=== PATIENT | male | born 1955 | race Caucasian/White ===

== ENCOUNTER 2024-05-03 09:02 | Emergency (ER) | payer MEDICARE, BC, SELFPAY ==
[2024-05-03 09:16] VITALS: BP 133/101; PULSE 78; RESP 18; TEMP 36.3; O2SAT 94; BMI 31.7
--- NOTE | 2024-05-03 10:21 | ED_ITS ---
HPI - Extremity Injury (Lower) General Date Seen: 05/03/24 Chief Complaint: Extremity Pain/Injury, Lower Stated Complaint: achilles/heel pain - felt something pop Time Seen by Provider: 05/03/24 10:02 Source: patient Mode of arrival: ambulatory Limitations: no limitations History of Present Illness HPI Narrative: Patient is a 68-year-old male presenting to emergency department for left heel pain. He states he has been having pain in his left heel and calf past few weeks but then noticed yesterday when he stepped on some loose dog food he felt like he had a pop in his ankle. Since then it has been more difficult to walk on it has been able to ambulate. Does have full range of motion of his ankle at this time. Pain is in the posterior aspect were the Achilles tendon would attach. He thinks he might have tendinitis. Has not noticed any leg swelling and no history of blood clots. Has been taking Aleve at home with minimal improvement in symptoms. No other concerns noted at this time. Related Data Home Medications ?Medication ?Instructions ?Recorded ?Confirmed amlodipine 10 mg tablet 10 mg PO DAILY 04/08/23 05/03/24 atorvastatin 40 mg tablet 40 mg PO DAILY 04/08/23 05/03/24 carbidopa 25 mg-levodopa 100 mg 3 tab PO TID 04/08/23 05/03/24 tablet citalopram 40 mg tablet 40 mg PO DAILY 04/08/23 05/03/24 glipizide 5 mg tablet 5 mg PO BID 04/08/23 08/12/23 hydrochlorothiazide 25 mg tablet 25 mg PO DAILY 04/08/23 08/12/23 lisinopril 40 mg tablet 40 mg PO DAILY 04/08/23 05/03/24 metformin 500 mg tablet,extended 1,000 mg PO BID 04/08/23 05/03/24 release 24 hr metoprolol succinate 200 mg 200 mg PO DAILY 04/08/23 05/03/24 tablet,extended release 24 hr glipizide 10 mg tablet, extended 10 mg PO DAILY 05/03/24 05/03/24 release 24 hr omeprazole 20 mg capsule,delayed 20 mg PO DAILY 05/03/24 05/03/24 release semaglutide 0.25 mg or 0.5 mg (2 0.25 mg subcut 05/03/24 mg/3 mL) subcutaneous pen injector (Ozempic) Previous Rx's ?Medication ?Instructions ?Recorded cyclobenzaprine 10 mg tablet 10 mg PO TID PRN muscle spasm #15 05/03/24 tabs ketorolac 10 mg tablet 10 mg PO Q6H PRN pain #20 tabs 05/03/24 Allergies Allergy/AdvReac Type Severity Reaction Status Date / Time clozapam Allergy Mild itchy Uncoded 05/03/24 09:20 Review of Systems Narrative: Pertinent systems reviewed and were negative unless stated in HPI Exam Narrative: Exam Narrative: Const: Well-nourished, Well-developed, in mild distress Eyes: PERRL, no conjunctival injection, and symmetrical lids HENT: Atraumatic external nose and ears. Moist mucous membranes. Remove MSK:Extremities w/o deformity, Normal Active ROM, tenderness noted and left calf and heel with dorsiflexion. Mild tenderness to palpation posterior left heel Skin: Warm, Dry. No rashes or lesions. Neuro: Normal Muscle tone, No focal neurological deficits. Psych: Awake, Alert, & Oriented x3. Appropriate mood and affect. Const: Vital Signs, click to edit/add: Vital Signs - 24 hr 05/03/24 09:16 Temperature 97.3 F L Pulse Rate [Pulse Oximeter] 78 Respiratory Rate 18 Blood Pressure [Le ft Upper Arm] 133/101 H Pulse Oximetry 94 Oxygen Delivery Me thod Room Air Course Vital Signs Vital signs: Initial Vital Signs Temperature 97.3 F L 05/03/24 09:16 Temperature Source Temporal Artery Scan 05/03/24 09:16 Pulse Rate 78 05/03/24 09:16 Respiratory Rate 18 05/03/24 09:16 Blood Pressure 133/101 H 05/03/24 09:16 Blood Pressure Mean 111 H 05/03/24 09:16 Blood Pressure Position Sitting 05/03/24 09:16 Pulse Oximetry 94 05/03/24 09:16 Oxygen Delivery Method Room Air 05/03/24 09:16 Vital Signs Temperature 97.3 F L 05/03/24 09:16 Pulse Rate 78 05/03/24 09:16 Respiratory Rate 18 05/03/24 09:16 Blood Pressure 133/101 H 05/03/24 09:16 Pulse Oximetry 94 05/03/24 09:16 Oxygen Delivery Method Room Air 08/12/24 09:16 Temperature 97.3 F L 05/03/24 09:16 Pulse Rate 78 05/03/24 09:16 Respiratory Rate 18 05/03/24 09:16 Blood Pressure 133/101 H 05/03/24 09:16 Pulse Oximetry 94 05/03/24 09:16 Oxygen Delivery Method Room Air 05/03/24 09:16 MDM - Extremity Injury (Lower) MDM Narrative Medical decision making narrative: Patient is a 68-year-old male presenting for left heel pain. It does sound like he has some type of tendinitis in his left Achilles. He has full range of motion and a full Achilles tear seems unlikely. Considering how well he is able move it there is any tear it is likely very small. He is still able to ambulate. Unlikely to be DVT at this time his is no lower extremity edema and pain and history is more consistent with a tendinitis. He was asking about cortisone injections I informed him we do not do those all of the emergency department and have to follow up outpatient for this. He is agreeable. Will also give him Toradol and a muscle relaxer to see if that helps. Patient will be discharged he is agreeable to this plan. Discharge Plan Discharge Clinical Impression: Achilles tendinitis Qualifiers: Laterality: left Qualified Code(s): M76.62 - Achilles tendinitis, left leg Patient Disposition: Home, Self-Care Condition: Stable Instructions: Achilles Tendinitis (ED) Additional Instructions: Take the Toradol and Flexeril as needed for pain. When you taking Toradol do not take any other NSAIDs such as Aleve and ibuprofen. Also trying do stretching exercises see if they help. The symptoms persist your follow-up with your primary care provider or Orthopedics. You can call [phone] to schedule an appointment. Prescriptions: New cyclobenzaprine 10 mg tablet 10 mg PO TID PRN (Reason: muscle spasm) Qty: 15 0RF ketorolac 10 mg tablet 10 mg PO Q6H PRN (Reason: pain) Qty: 20 0RF Rx Instructions: maximum total duration of 5 days from all oral, intranasal, or parenteral formulations No Action lisinopril 40 mg tablet 40 mg PO DAILY amlodipine 10 mg tablet 10 mg PO DAILY atorvastatin 40 mg tablet 40 mg PO DAILY metoprolol succinate 200 mg tablet extended release 24 hr 200 mg PO DAILY glipizide 5 mg tablet 5 mg PO BID hydrochlorothiazide 25 mg tablet 25 mg PO DAILY citalopram 40 mg tablet 40 mg PO DAILY metformin 500 mg tablet extended release 24 hr 1,000 mg PO BID carbidopa-levodopa 25-100 mg tablet 3 tab PO TID glipizide 10 mg tablet extended release 24hr 10 mg PO DAILY omeprazole 20 mg capsule,delayed release(DR/EC) 20 mg PO DAILY Ozempic 0.25 mg or 0.5 mg (2 mg/3 mL) pen injector 0.25 mg subcut Follow Up/Referrals: Provider,Not a Local [Primary Care Provider] - Stand [facility]one [facility]
== END 2024-05-03 10:42 | disposition home or self-care (01) ==
PROVIDERS: Emergency Provider Student in an Organized Health Care Education/Training Program
DX: M76.62 Achilles tendinitis, left leg (principal)
CPT/HCPCS: 99282; 99283

== ENCOUNTER 2025-01-03 19:42 | Emergency (ER) | payer MEDICARE, BC, SELFPAY ==
--- OUTSIDE RECORDS SUMMARY | 2025-01-03 19:45 | XMS_ITS | Clinical Summary ---
Author Organization [facility] Address [address] [place] [address] Care Team Providers Care Logger Name Role Phone Markus Khan MD Primary Care Provider [phone] Allergies No known active allergies Medications DIOVAN HCT 160 MG-25 MG TAB daily 0 Active TOPROL XL 100 MG 24 HR TAB 1/2 tab daily 0 Active CITALOPRAM 40 MG TAB daily 0 Active WELLBUTRIN XL 300 MG 24 HR TAB daily 0 Active CIPROFLOXACIN 500 MG TAB Take 1 tablet by mouth twice a day. 6 0 06/24/2006 Active HYDROCODONE-DIANE TAMINOPHEN 5 MG-500 MG TAB Take 1 to 2 tablets by mouth every 4 hours as needed for pain. 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 Gender Identity Not on file Sexual Orientation Not on file Obstetrics History Last Filed Vital Signs Vital Sign Reading Time Taken Comments Blood Pressure 134/76 06/24/2006 10:00 AM CDT Pulse 65 06/24/2006 10:00 AM CDT Temperature 36.1 C (97 F) 06/24/2006 9:00 AM CDT Respiratory Rate 16 06/24/2006 10:0 0 AM CDT Oxygen Saturation 98% 06/24/2006 10: 00 AM CDT Inhaled Oxygen Concentration - - Weight 106.6 kg (235 lb 0.2 oz) 06/24/2006 6:57 AM CDT Height 174 cm (5' 8.5) 06/24/2006 6:57 AM CDT Body Mass Index 35.21 06/24/2006 6:57 AM CDT Plan of Treatment Health Maintenance Due Date Last Done Comments Tdap 1966 Depression screening for age 12+ 1967 BMI (ht and wt on same day) for age 18+ 1973 Hepatitis C screening for age 18-79 1973 Tetanus booster 1975 Colonoscopy through age 75 2000 Lipids for age 45-75 2000 Pneumococcal series for age 50+ (1 of 1 - PCV) 005 Zoster (shingles) series for age 50+ (1 of 2) 07/27/20 05 COVID-19 vaccine series ( - 2023- season) Influenza Vaccine (Season Ended) 2025 RSV vaccine for adults or pr egnancy (1 - 1-dose 75+ series) 2030 Medical Devices Implanted Type Area Business Area Manager Device Identifier Shelf Expiration Date Model / Serial / Lot Stent Contour [id number] Prcflx [id number] Microvas - [id number] Implanted:Qty: 1 on 06/24/2006 at [facility] Left: [facility] [id number] / / [id number] [place] [address] [place] [address] Care Teams Logger Relationship Specialty Start Date End Date Markus Khan MD PCP - General 06/03/06
--- OUTSIDE RECORDS SUMMARY | 2025-01-03 19:45 | XMS_ITS | Encounter Summary ---
Author Organization [facility] Address [address] [place] [address] Care Team Providers Care Molasses Preparer Name Role Phone Anh, Sam Murrieta MD Primary Care Provider [phone] Encounter Details Date Type Department Care Team (Late st Contact Info) Description 12/01/2024 E-Visit Endoscopy at [facility] Special[facility] [place] at [address] [address] Mychart, [place] [address] Social History Tobacco Use Types Packs/Day Years Used Date Smoking Tobacco: Never Passive Smoke Exposure: Never Smokeless Tobacco: Never Alcohol Use Standard Drinks/Week Comments Yes 0 (1 standard drink = 0.6 oz pure alcohol) Once every 3 months will have 3-4 beers PHQ-2 Answer Date Recorded PHQ-2 Score 2 10/13/2024 Sex and Gender Information Value Date Recorded Sex Assigned at Not on file Legal Sex Male 5:25 AM CDT Gender Identity Not on file Sexual Orientation Not on file documented as of this encounter Plan of Treatment Upcoming Encounters Date Type Department Care Team (Late st Contact Info) Description 01/11/2025 10:00 AM CDT Appointment [facility] [address] [place] [phone] 01/12/2025 9:30 AM CDT Appointment [place] [address] [facility] [address] [place] [phone] Jomar Coon PA-C [address] [place] [address] 02/08/2025 11:10 AM CDT Appointment [facility] [address] [place] [address] Nik Deleon MD [address] [place] [address] 02/10/2025 2:30 PM CDT Appointment Gastroenterology Procedures at [facility] [address] [address] [place] [address] Jomar Coon PA-C [address] [place] [address] Chris Ontiveros MD [address] [place] [address] documented as of this encounter Visit Diagnoses Not on filedocumented in this encounter Care Teams Molasses Preparer Relationship Specialty [place] [address] [place] [address] PCP - General Family Practice 12/06/21 documented as of this encounter
--- OUTSIDE RECORDS SUMMARY | 2025-01-03 19:45 | XMS_ITS | Clinical Summary ---
Author Organization [employer] Address [address] [place] [address] Care Team Providers Care Bilingual Hr Generalist Name Role Phone AnhSam anderson MD Primary Care Provider [phone] Source Comments You are receiving this document as you are listed as the primary care provider,follow-up provider, or the patient has been referred to you for consultation.This is in compliance with the Medicare and[facility] E[facility]centive [facility],which states Providers who transition their patient to another setting of careor provider of care or refers their patient to another provider of care shouldprovide summary care record for each transition of care or referral. [employer] Allergies Active Allergy Reactions Criticality Noted Date Comments Clonazepam Rash 01/19/2013 Not sure if the rash was clonazepam or cymbalta Duloxetine Rash 12/04/2012 Not sure if the rash was clonazepam or cymbalta Medications * This document contains information received from the source organization and may not represent a complete record from that organization. aspirin EC 81 MG enteric coated tablet Take 1 Tablet by mouth daily. 3 04/12/20 20 Active metoprolol succinate (TOPROL-XL) 200 MG 24 hour release tabletIndications: Essential hypertension (HRC) Take 1 Tablet (200 mg) by mouth daily. 90 Tablet 3 10/13/19 25 Active amLODIPine (NORVASC) 10 MG tabletIndications: Essential hypertension (HRC) Take 1 Tablet (10 mg) by mouth daily. For blood pressure 90 Tablet 3 10/13/19 25 Active atorvastatin (LIPITOR) 40 MG tabletIndications: Hyperlipidemia, unspecified hyperlipidemia type (HRC) Take 1 Tablet (40 mg) by mouth daily. To prevent heart attack and stroke 90 Tablet 10/13/19 Active carbidopa-levodopa (SINEMET) 25-100 MG tabletIndications: Tremor TAKE 3 TABLETS BY MOUTH 3 TIMES DAILY 810 Tablet 10/13/19 Active citalopram (CELEXA) 40 MG tabletIndications: Anxiety and depression (HRC) Take 1 Tablet (40 mg) by mouth daily. Patient states he is taking 40 mg daily. 90 Tablet 10/13/19 Active glipiZIDE XL 10 MG 24 hour release tabletIndications: Type 2 diabetes mellitus treated without insulin (HRC) Take 1 Tablet (10 mg) by mouth daily. 90 Tablet 10/13/19 Active hydroCHLOROthiazid e (ORETIC) 25 MG tabletIndications: Essential hypertension (HRC) Take 1 Tablet (25 mg) by mouth daily. For blood pressure 90 Tablet 10/13/19 Active lisinopril (ZESTRIL) 40 MG tabletIndications: Essential hypertension (HRC) Take 1 Tablet (40 mg) by mouth daily. 90 Tablet 10/13/19 Active metFORMIN XR (GLUCOPHAGE XR) 500 MG 24 hour release tabletIndications: Type 2 diabetes mellitus treated without insulin (HR) Take 4 Tablets (2,000 mg) by mouth daily with food. For diabetes 360 Tablet 10/13/19 Active omeprazole (PRILOSEC) 20 MG capsuleIndications :History of NSAID-associated gastropathy Take 1 Capsule (20 mg) by mouth daily. For stomach ulcer prevention 90 Capsule 10/13/19 Active semaglutide (OZEMPIC) 2 MG/3ML injectionIndicatio ns:Type 2 diabetes mellitus treated without insulin (HRC) Inject 0.5 mg subcutaneously once a week. 3 mL 10/13/19 Active venlafaxine (EFFEXORXR) 37.5 MG 24 hour release capsuleIndications :Anxiety and depression (HRC) Take 1 Capsule (37.5 mg) by mouth daily. 30 Capsule 3 01/22/20 25 01/22/2 026 Active tiZANidine (ZANAFLEX) 4 MG tabletIndications: Strain of lumbar region, initial encounter Take 1 Tablet (4 mg) by mouth every 6 hours as needed. 30 Tablet 1 10/13/19 25 Active methylPREDNISolone (MEDROL 21 TABLET DOSEPACK) 4 MG tabletIndications: Strain of lumbar region, initial encounter Follow package directions 21 Tablet 10/13/19 25 Active Active Problems Problem Noted Date Diagnosed Date Parkinsonism 05/15/2021 Class 1 obesity due to exces s calories with serious comorbidity and body mass index (BMI) of 33.0 to 33.9 in adult 08/07/2017 Major depressive disorder 12/16/2016 Hypertension associated with diabetes 02/03/2015 Overview (12/17/2016): Uncontrolled as of 12/16/2016 - adding Hctz 25mg daily to previous regimen of amlodipine 10mg, hydralazine 25mg BID, lisinopril 40mg daily, metoprolol 100mg BID - plan to gradually taper off hydralazine. 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 [address] Mychart, Generic Provider 10/18/2024 Telephone [facility] [phone] Family [facility] [address] [place] [address] Sam Kamara MD ERRONEOUS ENTRY 10/13/2024 1:00 PM [employer] Office Visit [address] [address] Jomar Coon PA-C Type 2 diabetes mellitus treated without insulin (HRC) (Primary Dx); Essential hypertension (HRC); Hyperlipidemia, unspecified hyperlipidemia type (HRC); Anxiety and depression (HRC); Tremor; History of NSAID-associated gastropathy; Strain of lumbar region, initial encounter 10/12/2024 12:30 PM [employer] Lab Visit [address] [address] Type 2 diabetes mellitus treated without insulin (HRC) 10/08/[address] [address] Sam Kamara MD Refill; New Medication from Last 3 Months Immunizations Immunization Administration Dates Next Due Flu Vac (3+ yrs) 09/01/2003 Flu Vac Preserv Free (3+yrs) 06/21/2016 Influenza IIV4 (Quadrivalent) 0.5mL (53913) 07/23 Influenza IIV4 (Quadrivalent ) Fluad, 65+ Yrs 07/03/2021,10/03/2020 Influenza, Unspecified Formulation 09/03/2013, PPSV23 (Pneumovax) 07/03/2021,10/02/2011 Pfizer Monovalent 12+ Purple Top 08/24/2021,03/0 10/2020,10/31/2020 TDAP (ADACEL) 06/21/2016 Td 06/19/2006 Td (7+ yrs) 06/19/2006,08/13/2005 Zoster (Zostavax) 12/16/2016 Zoster RZV (Shingrix) 12/30/2017 Family History Medical History Relation Name Comments Hypertension Father Cancer, Breast Mother Hypertension Paternal Grandfather Cataract Paternal Grandmother Diabetes Paternal Grandmother Diabetes, Type II Paternal Grandmother Heart Attack Paternal Grandmother Hypertension Paternal Grandmother Stroke Paternal Grandmother Amblyopia/Strabismus Negative Family History Cancer, Colon Negative Family History Glaucoma Negative Family History Macular Degeneration Negative Family History Retinal Detachment Negative Family History Tremor Negative Family History Relation Name Status Comments Father Mother Paternal Grandfather Paternal Grandmother Social History Tobacco Use Types Packs/Day Years Used Date Smoking Tobacco: Never Passive Smoke Exposure: Never Smokeless Tobacco: Never Tobacco Cessation:Counseling Given: Not Answered Alcohol Use Standard Drinks/Week Comments Yes 0 (1 standard drink = 0.6 oz pure alcohol) Once every 3 months will have 3-4 beers PHQ-2 Answer Date Recorded PHQ-2 Score 2 10/13/2024 Sex and Gender Information Value Date Recorded Sex Assigned at Not on file Legal Sex Male 5:25 AM CDT Gender Identity Not on file Sexual Orientation Not on file Last Filed Vital Signs Vital Sign Reading Time Taken Comments Blood Pressure 137/85 10/13/2024 12:55 PM [employer] Pulse 83 10/13/2024 12:55 PM [employer] Temperature 36.5 C (97.7 F) 05/12/2024 10:38 AM CDT Respiratory Rate 16 10/13/2024 12:52 PM [employer] Oxygen Saturation 96% 05/08/2020 2:42 PM CDT Inhaled Oxygen Concentration - - Weight 95.3 kg (210 lb) 10/13/2024 12:52 PM [employer] Height 175.3 cm (5' 9) 10/13/2024 12:52 PM [employer] Body Mass Index 31.01 10/13/2024 12:52 PM [employer] Plan of Treatment Upcoming Encounters Date Type Department Care Team (Late st Contact Info) Description 01/11/2025 10:00 AM CDT Appointment [facility] [address] [place] [phone] 01/12/2025 9:30 AM CDT Appointment [place] [phone] [address] [place] [address] Jomar Coon PA-C [address] [place] [address] 02/08/2025 11:10 AM CDT Appointment [facility] [address] [place], [place] [address] Nik Deleon MD [address] [place] [address] 02/10/2025 2:30 PM CDT Appointment Gastroenterology Procedures at [facility] [address] [address] [place] [address] Jomar Coon, PACorneliusC [address], [place] [phone] Chris Ontiveros MD [address] [place], [place] [phone] Health Maintenance Due Date Last Done Comments Zoster/Shingles (3 of 3) 02/24/2018 12/30/2017, 11/21 Pneumococcal 50+ Yrs (2 of 2 - PCV) 07/03/2022 07/03/2021, 10/02/2011 Colonoscopy 01/20/2023 01/20/2013 (Completed) COVID-19 Vaccine ( season) 2024 08/24/2021, 11/21/2020, 10/31/2020 Influenza (#1) 2024 07/03/2021, 09/22, 08/07/2017, Additional history exists FIT Colon Cancer Screening 11/30/2024 12/01/2023 Diabetes: HGBA1C 01/10/2025 10/12/2024, 12/2023, 02/05/2024, Additional history exists Diabetes: Creatinine 02/04/2025 02/05/2024, 03/05/2023, 02/19/2022, Additional history exists Diabetes: Foot Exam 02/04/2025 02/05/2024 ( Completed), 04/07/2019 (Completed), 08/07/2017 Diabetes: Eye Exam 03/03/2025 03/03/2024, 0 03/03/2024, 02/28/2023, Additional history exists Diabetes: Urine Microalbumin 05/26/2025 05/26/2024, 03/05/2023, 02/19/2022, Additional history exists Medicare Annual Wellness Visit 05/26/2025 05/26/2024, 03/05/2023, 02/19/2022 DTaP/Tdap/Td (2 - Tdap) 06/21/2026 06/21/20 16, 06/19/2006, 06/19/2006, Additional history exists Diabetes: Lipid Panel 02/04/2029 02/05/2024 , 03/05/2023, 02/19/2022, Additional history exists RSV (1 - 1-dose 75+ series) 2030 Hep C Screening (Preventive Services) Completed 12/16/2016 PSA Screening Discussion Discontinued 024, 03/05/2023, 02/19/2022, Additional history exists HepA Aged Out No longer eligi ble based on patient's age to complete this topic HepB Aged Out No longer eligi ble based on patient's age to complete this topic Hib Aged Out No longer eligi ble based on patient's age to complete this topic IPV (Polio) Aged Out No longer eligi ble based on patient's age to complete this topic MCV4 Aged Out No longer eligi ble based on patient's age to complete this topic Meningococcal B Aged Out No longer el igible based on patient's age to complete this topic Procedures Procedure Name Priority Date/Time Associated Diagnosis Comments HGB A1C Routine 10/12/2024 12:28 PM [employer] Type 2 diabetes mellitus treated without insulin (HRC) ALBUMIN/CREAT RATIO Routine 05/26/2024 12:08 PM CDT Type 2 diabetes mellitus treated without insulin (HRC) PROSTATIC SPECIFIC ANTIGEN(SCREEN) Routine 05/26/2024 12:02 PM CDT Screening for prostate cancer BASIC METABOLIC PANEL Routine 02/05/2024 2:55 PM CDT Essential hypertension (HRC) LIPID PANEL & DIRECT LDL (IF NEEDED) Routine 02/05/2024 2:55 PM CDT Hyperlipidemia, unspecified hyperlipidemia type (HRC) FIT,OCCULT BLOOD, STOOL Routine 12/01/2023 8:00 AM CDT Screen for colon cancer HEPATITIS C ANTIBODY, WITH REFLEX Routine 12/16/2016 3:24 PM CDT Need for hepatitis C screening test from Last 3 Months or Most Recently Relevant to Health Maintenance Results * (ABNORMAL) Hgb A1C (10/12/2024 12:28 PM [employer]) Hemoglobin A1C 7.6(H) <=5.6 % 10/12/2024 8:22 PM [employer] [facility] Estimated Average Glucose (Calc) 171 < 117 mg/dL 10/12/2024 8:22 PM [employer]ACH [facility] Comment:Estimated average gl ucose (eAG) converts A1c into glucose units (mg/dL) and estimates average glucose over the past approximately 3 months. The eAG reference interval (<117 mg/dL) corresponds to an A1c of <5.7%. Blood Venipuncture / Unknown 10/12/2024 12:28 PM [employer] 10/12/2024 12:28 PM [employer] Narrative [facility] - 10/12/2024 8:22 PM [employer] For patients not previously diagnosed with diabetes: 5.7-6.4%: Increased risk for diabetes 6.5% and greater: Diagnostic for diabetes For patients diagnosed with diabetes: <8.0%: Goal of therapy for ages 18-75 Clinicians may recommend a higher or lower goal for specific individuals. us Sam Kamara MD LAB_1 Final Result [facility] [address] [address] * (ABNORMAL) Albumin/Creatinine Ratio,Random Urine (05/26/2024 12:08 PM CDT) Albumin/Creati nine Ratio, Urine, Random 78(H) <30 mg/g 05/26/2024 6:50 PM CDT [facility] Albumin, Urine, Random 62.3 mg/L 05/26/2024 6:50 PM CDT [facility] Creatinine, Urine, Random 80 >20 mg/dL mg/dL 05/26/2024 6:50 PM CDT [facility] Urine Non-blood Collection / Unknown 05/26/2024 12:08 PM CDT 05/26/2024 12:08 PM CDT Jomar Coon PA-C LAB_1 Final Result Performing Organization Address [facility]/ZIP Co de Phone Number [facility] [address] [place] [address] * PSA - Prostatic Specific Antigen (Screen) (05/26/2024 12:02 PM CDT) Prostatic Specific Antigen 2.7 0.0 - 4.0 ng/mL 05/26/2024 6:10 PM CDT [facility] Blood Venipuncture / Unknown 05/26/2024 12:02 PM CDT 05/26/2024 12:02 PM CDT Narrative [facility] - 05/26/2024 6:10 PM CDT The [employer] PSA Chemiluminescent immunoassay is used. Results obtained with different test methods or kits cannot be used interchangeably. Jomar Coon PA-C LAB_1 Final Result Performing Organization Address [facility] Co de Phone Number [facility] [address] [place], [place] [address] * (ABNORMAL) Lipid Panel & Direct LDL (if Needed) (02/05/2024 2:55 PM CDT) Cholesterol 132 0 - 199 mg/dL 02/05/2024 7:11 PM T [facility] Triglyceride 170(H) <=149 mg/dL 02/05/2024 7:11 PM T [facility] HDL Cholesterol 37(L) >=40 mg/dL 7:11 PM T [facility] LDL, Calculated 61 <130 mg/dL 7:11 PM T [facility] Non HDL Chol, Calculated 95 <=159 mg/dL 02/05/2024 7:11 PM [facility] Cholesterol/HDL Ratio 3.6 <=5.0 02/05/2024 7:11 PM [facility] Hours Fasting 0.0 8 - 12 Hours 02/05/2024 7:11 PM [facility] Blood Venipuncture / Unknown 02/05/2024 2:55 PM CDT 02/05/2024 2:55 PM CDT us Jomar Coon PA-C LAB_1 Final Result [facility] [address] [place] [address] * (ABNORMAL) Basic Metabolic Panel (02/05/2024 2:55 PM CDT) Sodium 136 136 - 145 mmol/L 02/05/2024 7:11 PM [facility] Potassium 3.9 3.5 - 5.1 mmol/L 02/05/2024 7:11 PM [facility] Chloride 99 98 - 109 mmol/L 02/05/2024 7:11 PM [facility] CO2 23 20 - 29 mmol/L 02/05/2024 7:11 PM [facility] Anion Gap 14 6 - 16 mmol/L 02/05/2024 7:11 PM [facility] Calcium 9.8 8.4 - 10.4 mg/dL 02/05/2024 7:11 PM [facility] BUN 19 7 - 26 mg/dL 02/05/2024 7:11 PM [facility] Creatinine 0.99 0.73 - 1.18 mg/dL 02/05/2024 7:11 PM [facility] Glucose 127(H) 70 - 100 mg/dL 02/05/2024 7:11 PM [facility] Comment:The given reference range is for the fasting state. Non-fasting reference range for glucose is 70 - 180 mg/dL. GFR, Estimated >60 >60 mL/min/1.7 3m2 02/05/2024 7:11 PM [facility] Hours Fasting 0.0 8 - 12 Hours 02/05/2024 7:11 PM [facility] Blood Venipuncture / Unknown 02/05/2024 2:55 PM CDT 02/05/2024 2:55 PM CDT Jomar Coon PA-C LAB_1 Final Result Performing Organization Address City/[facility]/ZIP Co de Phone Number [facility] [address] [place] [address] * FIT Colon Rectal Cancer Screening (12/01/2023 8:00 AM CDT) FIT Specimen 1 Negative Negative 12/02/2023 2:39 AM CDT [facility] Stool Non-blood Collection / Unknown 12/01/2023 8:00 AM CDT 12/01/2023 5:17 PM CDT Jomar Coon PA-C LAB_1 Final Result Performing Organization Address [facility] de Phone Number [address] [place] [address] [address], [facility] * Hepatitis C Antibody, with Reflex (12/16/2016 3:24 PM CDT) Pathologist [facility] Anti-HCV Negative (Non Reactive) [facility] Comment: Antibodies to HCV not detected. Does not exclude the possibility of exposure to HCV. 12/16/2016 3:24 PM CDT 12/16/2016 3:25 PM CDT Narrative [facility] - 12/16/2016 6:59 PM CDT Performed at [facility], [address] [place] [address] Rigoberto Gallagher MD LAB_1 Final Result Performing Organization Address City/[facility] Co de Phone Number [facility] [phone] from Last 3 Months or Most Recently Relevant to Health Maintenance Insurance MEDICARE [facility] MEDICARE SUPPLEMENT MEDICARE [facility] MEDICARE SUPPLEMENT Care Teams Bilingual Hr Generalist Relationship Specialty [place] [address] [place] [address] PCP - General Family Practice 12/06/21
[2025-01-03 19:50] VITALS: BP 154/92; PULSE 93; RESP 16; TEMP 36.7; O2SAT 100; BMI 31.0
--- NOTE | 2025-01-03 21:18 | ED.GENADULT ---
HPI - General Adult General Chief complaint: Constipation Stated complaint: Blockage in Rectum Time Seen by Provider: 01/03/25 21:15 History of Present Illness HPI narrative: this AM started having trouble passing BM, states he feels it is about to come but just doesnt. tried dulcolax, prune juice and enema. 69-year-old man presenting to the emergency department with concern of lower abdominal pain. Having trouble passing stool. Has had trouble with constipation over the since starting Ozempic about 6 or 7 months ago. It has been 3 maybe 4 days since he had a bowel movement. Did try an enema today and just really had trouble even getting it in there. It hurts. Feels like it is about to come out having painful cramps. No blood no fever. Does look to have Parkinson's Related Data Home Medications ?Medication ?Instructions ?Recorded ?Confirmed amlodipine 10 mg tablet 10 mg PO DAILY 04/08/23 10/12/24 atorvastatin 40 mg tablet 40 mg PO DAILY 04/08/23 10/12/24 carbidopa 25 mg-levodopa 100 mg 3 tab PO TID 04/08/23 10/12/24 tablet citalopram 40 mg tablet 40 mg PO DAILY 04/08/23 10/12/24 glipizide 5 mg tablet 5 mg PO BID 04/08/23 10/12/24 hydrochlorothiazide 25 mg tablet 25 mg PO DAILY 04/08/23 10/12/24 lisinopril 40 mg tablet 40 mg PO DAILY 04/08/23 10/12/24 metformin 500 mg tablet,extended 1,000 mg PO BID 04/08/23 10/12/24 release 24 hr metoprolol succinate 200 mg 200 mg PO DAILY 04/08/23 10/12/24 tablet,extended release 24 hr glipizide 10 mg tablet, extended 10 mg PO DAILY 05/03/24 10/12/24 release 24 hr omeprazole 20 mg capsule,delayed 20 mg PO DAILY 05/03/24 10/12/24 release semaglutide 0.25 mg or 0.5 mg (2 0.25 mg subcut 05/03/24 10/12/24 mg/3 mL) subcutaneous pen injector (Ozempic) Previous Rx's ?Medication ?Instructions ?Recorded cyclobenzaprine 10 mg tablet 10 mg PO TID PRN muscle spasm #15 05/03/24 tabs ketorolac 10 mg tablet 10 mg PO Q6H PRN pain #20 tabs 05/03/24 Allergies Allergy/AdvReac Type Severity Reaction Status Date / Time clozapam Allergy Mild itchy Uncoded 10/12/24 09:32 Review of Systems Status of ROS: Reports: 6 or more systems reviewed and unremarkable except as noted in History and below PFSH PFS Social History Smoking Status: Never smoker Do you use any of these nicotine containing products: None How often do you have a drink containing alcohol: never How often do you have six or more drinks on one occasion: Never AUDIT-C Alcohol total score: 0 Non-prescribed substance use: denies use Exam Narrative: Exam Narrative: Pleasant. Hearing aids in place. Slightly flatter facies. Breathing easily. Tremor most evident in his left hand. Abdomen is full soft and nontender. Const: Vital Signs, click to edit/add: Vital Signs - 24 hr 01/03/25 19:50 Temperature 98.1 F Pulse Rate [Pulse Oximeter] 93 Respiratory Rate 16 Blood Pressure [Ri t Upper Arm] 154/92 H Pulse Oximetry 100 Oxygen Delivery Me thod Room Air Documenting provider has reviewed patient's vital signs: yes Course Vital Signs Vital signs: Initial Vital Signs Temperature 98.1 F 01/03/25 19:50 Temperature Source Temporal Artery Scan 01/03/25 19:50 Pulse Rate 93 01/03/25 19:50 Respiratory Rate 16 01/03/25 19:50 Blood Pressure 154/92 H 01/03/25 19:50 Blood Pressure Mean 112 H 01/03/25 19:50 Blood Pressure Position Sitting 01/03/25 19:50 Pulse Oximetry 100 01/03/25 19:50 Oxygen Delivery Method Room Air 01/03/25 19:50 Vital Signs Temperature 98.1 F 01/03/25 19:50 Pulse Rate 93 01/03/25 19:50 Respiratory Rate 16 01/03/25 19:50 Blood Pressure 154/92 H 01/03/25 19:50 Pulse Oximetry 100 01/03/25 19:50 Oxygen Delivery Method Room Air 01/03/25 19:50 Temperature 98.1 F 01/03/25 19:50 Pulse Rate 93 01/03/25 19:50 Respiratory Rate 16 01/03/25 19:50 Blood Pressure 154/92 H 01/03/25 19:50 Pulse Oximetry 100 01/03/25 19:50 Oxygen Delivery Method Room Air 01/03/25 19:50 Medications Administered Medications: Discontinued Medications Generic Name Dose Route Start Last Admin Trade Name Rayshawn PRN Reason Stop Dose Admin Docusate Sodium/Benzocaine 5 ml 01/03/25 21:23 01/03/25 21:38 Docusate Sodium/Benzocaine 5 Ml Enema CA 01/03/25 21:24 5 ml ONCE ONE Administration Medical Decision Making MDM Narrative Medical decision making narrative: Will start with Enemeez as is describing some pain. Perhaps this will help with the pain and help him relax. Clearly describing constipation. This might be related to Ozempic or also part of his Parkinson's. Might need to evaluate for urinary retention though or diverticulitis or hemorrhoids pending results. Otherwise no red flags. Abdominal exam is nontender. No fever Imaging pending improvement. Enemeez placed and and had a good bowel movement with improvement in symptoms. Appears more energetic and relieved and ready to leave the department. Do not believe any further evaluation is necessary here today. See patient discharge plan for further discussion I am happy you are feeling better. Focus on hydration. Consider taking MiraLax 1-3 times daily over the next 1-2 weeks adjusting to stool consistency. Each dose would be in least 8 oz of liquid. You might accomplish further bowel clean out with a bottle of magnesium citrate and repeat the next day if no significant result. Discharge Plan Discharge Clinical Impression: Constipation Patient Disposition: Home, Self-Care Condition: Improved Instructions: Constipation (ED) Additional Instructions: I am happy you are feeling better. Focus on hydration. Consider taking MiraLax 1-3 times daily over the next 1-2 weeks adjusting to stool consistency. Each dose would be in least 8 oz of liquid. You might accomplish further bowel clean out with a bottle of magnesium citrate and repeat the next day if no significant result. Prescriptions: No Action lisinopril 40 mg tablet 40 mg PO DAILY amlodipine 10 mg tablet 10 mg PO DAILY atorvastatin 40 mg tablet 40 mg PO DAILY metoprolol succinate 200 mg tablet extended release 24 hr 200 mg PO DAILY glipizide 5 mg tablet 5 mg PO BID hydrochlorothiazide 25 mg tablet 25 mg PO DAILY citalopram 40 mg tablet 40 mg PO DAILY metformin 500 mg tablet extended release 24 hr 1,000 mg PO BID carbidopa-levodopa 25-100 mg tablet 3 tab PO TID glipizide 10 mg tablet extended release 24hr 10 mg PO DAILY omeprazole 20 mg capsule,delayed release(DR/EC) 20 mg PO DAILY Ozempic 0.25 mg or 0.5 mg (2 mg/3 mL) pen injector 0.25 mg subcut cyclobenzaprine 10 mg tablet 10 mg PO TID PRN (Reason: muscle spasm) Qty: 15 0RF ketorolac 10 mg tablet 10 mg PO Q6H PRN (Reason: pain) Qty: 20 0RF Rx Instructions: maximum total duration of 5 days from all oral, intranasal, or parenteral formulations Follow Up/Referrals: Provider,Not a Local [Non-Staff] - Stand Alone [facility]: [facility] Info Inst[facility]
--- OUTSIDE RECORDS SUMMARY | 2025-01-03 21:29 | XMS_ITS | Encounter Summary ---
Author Organization [facility] Address [address] [place] [address] Care Team Providers Care Commercial Insurance Underwriter Name Role Phone Anh, Sam Murrieta MD Primary Care Provider [phone] Encounter Details Date Type Department Care Team (Late st Contact Info) Description 12/01/2024 E-Visit Endoscopy at [facility] [place] at [address] [address] Mychart, [place] [address] Social History Tobacco Use Types Packs/Day Years [...] Info) Description 01/11/2025 10:00 AM CDT Appointment [facility] [address] [place] [phone] 01/12/2025 9:30 AM CDT Appointment [place] [address] Family Medicine [address] [place] [phone] Jomar Coon PA-C [address] [place] [address] 02/08/2025 11:10 AM CDT Appointment [facility] [address] [place] [address] Nik Deleon MD [address] [place] [address] 02/10/2025 2:30 PM CDT Appointment Gastroenterology Procedures at [facility] [address] [address] [place] [address] Jomar Coon PA-C [address] [place] [address] Chris Ontiveros MD [address] [place] [address] documented as of this encounter Visit Diagnoses Not on filedocumented in this encounter Care Teams Commercial Insurance Underwriter Relationship Specialty [place] [address] [place] [address] PCP - General Family Practice 12/06/21 documented as of this encounter
--- OUTSIDE RECORDS SUMMARY | 2025-01-03 21:29 | XMS_ITS | Clinical Summary ---
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
--- OUTSIDE RECORDS SUMMARY | 2025-01-03 21:29 | XMS_ITS | Clinical Summary ---
Author Organization [facility] Address [address] [place] [address] Care Team Providers Care Geotechnicial Properties Technician Name Role Phone AnhSam anderson MD Primary Care Provider [phone] Source Comments You are receiving this document as you are listed as the primary care provider,follow-up provider, or the patient has been referred to you for consultation.This is in compliance with the Medicare and[facility] EHR Incentive Program,which states Providers who transition their patient to another setting of careor provider of care or refers their patient to another provider of care shouldprovide summary care record for each transition of care or referral. 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 [address] Mychart, Generic Provider 10/18/2024 Telephone [place] [address] Family [facility] [address] [place] [phone] Sam Kamara MD ERRONEOUS ENTRY 10/13/2024 1:00 PM [employer] [facility] Office Visit [address] [phone] Jomar Coon PA-C Type 2 diabetes mellitus treated without insulin (HRC) (Primary Dx); Essential hypertension (HRC); Hyperlipidemia, unspecified hyperlipidemia type (HRC); Anxiety and depression (HRC); Tremor; History of NSAID-associated gastropathy; Strain of lumbar region, initial encounter 10/12/2024 12:30 PM [employer] [facility] Lab Visit [address] [phone] Type 2 diabetes mellitus treated without insulin (HRC) 10/08/[address] [phone] Sam Kamara MD Refill; New Medication from Last 3 Months Immunizations Immunization Administration Dates Next Due Flu Vac (3+ yrs) 09/01/2003 Flu Vac Preserv Free (3+yrs) 06/21/2016 Influenza IIV4 (Quadrivalent) 0.5mL (66024) 07/23 Influenza IIV4 (Quadrivalent ) Fluad, 65+ [...] Comments Blood Pressure 137/85 10/13/2024 12:55 PM [employer] Pulse 83 10/13/2024 12:55 PM [employer] Temperature 36.5 C (97.7 F) 05/12/2024 10:38 AM CDT Respiratory Rate 16 10/13/2024 12:52 PM [employer] Oxygen Saturation 96% 05/08/2020 2:42 PM CDT Inhaled Oxygen Concentration - - Weight 95.3 kg (210 lb) 10/13/2024 12:52 PM [employer] Height 175.3 cm (5' 9) 10/13/2024 12:52 PM [employer] Body Mass Index 31.01 10/13/2024 12:52 PM [employer] Plan of Treatment Upcoming Encounters Date Type Department Care Team (Late st Contact Info) Description 01/11/2025 10:00 AM CDT Appointment [facility] [address] [place] [phone] 01/12/2025 9:30 AM CDT Appointment [place] [id number] [facility] Medicine [address] [place] [phone] Jomar Coon PA-C [address] [place] [address] 02/08/2025 11:10 AM CDT Appointment [facility] [address] [place], [place] [phone] Nik Deleon MD [address] [place] [address] 02/10/2025 2:30 PM CDT Appointment Gastroenterology Procedures at [facility] [address] [address] [place] [address] Jomar Coon, PACorneliusC [address] [place], [place] [phone] Chris Ontiveros MD [address] [place], [place] [phone] Health Maintenance Due Date Last Done Comments [...] Comments HGB A1C Routine 10/12/2024 12:28 PM [employer] Type 2 diabetes mellitus treated without insulin [...] * (ABNORMAL) Hgb A1C (10/12/2024 12:28 PM [employer]) Hemoglobin A1C 7.6(H) <=5.6 % 10/12/2024 8:22 PM [employer] [facility] Estimated Average Glucose (Calc) 171 < 117 mg/dL 10/12/2024 8:22 PM [employer] Comment:Estimated average gl ucose (eAG) converts A1c into glucose units (mg/dL) and estimates average glucose over the past approximately 3 months. The eAG reference interval (<117 mg/dL) corresponds to an A1c of <5.7%. Blood Venipuncture / Unknown 10/12/2024 12:28 PM [employer] 10/12/2024 12:28 PM [employer] Narrative [facility] - 10/12/2024 8:22 PM [employer] For patients not previously diagnosed with diabetes: 5.7-6.4%: Increased risk for diabetes 6.5% and greater: Diagnostic for diabetes For patients diagnosed with diabetes: <8.0%: Goal of therapy for ages 18-75 Clinicians may recommend a higher or lower goal for specific individuals. us Sam Kamara MD LAB_1 Final Result [facility] [address] [address] * (ABNORMAL) Albumin/Creatinine Ratio,Random Urine (05/26/2024 12:08 PM CDT) Albumin/Creati nine Ratio, Urine, Random 78(H) <30 mg/g 05/26/2024 6:50 PM CDT [facility] Albumin, Urine, Random 62.3 mg/L 05/26/2024 6:50 PM CDT [facility] Creatinine, Urine, Random 80 >20 mg/dL mg/dL 05/26/2024 6:50 PM CDT [facility] Urine Non-blood Collection / Unknown 05/26/2024 12:08 PM CDT 05/26/2024 12:08 PM CDT Jomar Coon PA-C LAB_1 Final Result Performing Organization Address [facility]/ZIP Co de Phone Number [facility] [address] [place] [phone] * PSA - Prostatic Specific Antigen (Screen) (05/26/2024 12:02 PM CDT) Prostatic Specific Antigen 2.7 0.0 - 4.0 ng/mL 05/26/2024 6:10 PM CDT [facility] Blood Venipuncture / Unknown 05/26/2024 12:02 PM CDT 05/26/2024 12:02 PM CDT Narrative [facility] - 05/26/2024 6:10 PM CDT The [email or web address] PSA Chemiluminescent immunoassay is used. Results obtained with different test methods or kits cannot be used interchangeably. Jomar Coon PA-C LAB_1 Final Result Performing Organization Address [facility] Co de Phone Number [facility] [address] [place], [place] [address] * (ABNORMAL) Lipid Panel & Direct LDL (if Needed) (02/05/2024 2:55 PM CDT) Cholesterol 132 0 - 199 mg/dL 02/05/2024 7:11 PM T [facility] Triglyceride 170(H) <=149 mg/dL 02/05/2024 7:11 PM T [facility] HDL Cholesterol 37(L) >=40 mg/dL 7:11 PM T [facility] LDL, Calculated 61 <130 mg/dL 7:11 PM T [facility] Non HDL Chol, Calculated 95 <=159 mg/dL 02/05/2024 7:11 PM [facility] Cholesterol/HDL Ratio 3.6 <=5.0 02/05/2024 7:11 PM [facility] Hours Fasting 0.0 8 - 12 Hours 02/05/2024 7:11 PM [facility] Blood Venipuncture / Unknown 02/05/2024 2:55 PM CDT 02/05/2024 2:55 PM CDT us Jomar Coon PA-C LAB_1 Final Result [facility] [address] [place] [phone] * (ABNORMAL) Basic Metabolic Panel (02/05/2024 2:55 PM CDT) Sodium 136 136 - 145 mmol/L 02/05/2024 7:11 PM [facility] Potassium 3.9 3.5 - 5.1 mmol/L 02/05/2024 7:11 PM [facility] Chloride 99 98 - 109 mmol/L 02/05/2024 7:11 PM [facility] CO2 23 20 - 29 mmol/L 02/05/2024 7:11 PM [facility] Anion Gap 14 6 - 16 mmol/L 02/05/2024 7:11 PM [facility] Calcium 9.8 8.4 - 10.4 mg/dL 02/05/2024 7:11 PM [facility] BUN 19 7 - 26 mg/dL 02/05/2024 7:11 PM [facility] Creatinine 0.99 0.73 - 1.18 mg/dL 02/05/2024 7:11 PM [facility] Glucose 127(H) 70 - 100 mg/dL 02/05/2024 7:11 PM [facility] Comment:The given reference range is for the fasting state. Non-fasting reference range for glucose is 70 - 180 mg/dL. GFR, Estimated >60 >60 mL/min/1.7 3m2 02/05/2024 7:11 PM [facility] Hours Fasting 0.0 8 - 12 Hours 02/05/2024 7:11 PM [facility] Blood Venipuncture / Unknown 02/05/2024 2:55 PM CDT 02/05/2024 2:55 PM CDT Jomar Coon PA-C LAB_1 Final Result Performing Organization Address City/[facility]/ZIP Co de Phone Number [facility] [address] [place] [address] * FIT Colon Rectal Cancer Screening (12/01/2023 8:00 AM CDT) FIT Specimen 1 Negative Negative 12/02/2023 2:39 AM CDT [facility] Stool Non-blood Collection / Unknown 12/01/2023 8:00 AM CDT 12/01/2023 5:17 PM CDT Jomar Coon PA-C LAB_1 Final Result Performing Organization Address [facility] de Phone Number [address] [address], [facility] * Hepatitis C Antibody, with Reflex (12/16/2016 3:24 PM CDT) Pathologist [facility] Anti-HCV Negative (Non Reactive) [facility] Comment: Antibodies to HCV not detected. Does not exclude the possibility of exposure to HCV. 12/16/2016 3:24 PM CDT 12/16/2016 3:25 PM CDT Narrative [facility] - 12/16/2016 6:59 PM CDT Performed at [facility], [address] [place] [address] Rigoberto Gallagher MD LAB_1 Final Result Performing Organization Address City/[facility] Co de Phone Number [facility] [phone] from Last 3 Months or Most Recently Relevant to Health Maintenance Insurance MEDICARE [facility] MEDICARE SUPPLEMENT MEDICARE [facility] MEDICARE SUPPLEMENT Care Teams Geotechnicial Properties Technician Relationship Specialty [place] [address] [place] [address] PCP - General Family Practice 12/06/21
[2025-01-03] MEDS: DOCUSATE SODIUM/BENZOCAINE 5 ML ENEMA PR (21:38)
== END 2025-01-03 22:09 | disposition home or self-care (01) ==
PROVIDERS: Emergency Provider Family Medicine; PCP Family Medicine
DX: K59.00 Constipation, unspecified (principal)
CPT/HCPCS: 99283; 99284; A9270